=== PATIENT | male | born 1960 | race Caucasian/White ===

== ENCOUNTER 2024-06-12 17:37 | Emergency (ER) | payer OTHER ==
[~2024-06-12] VITALS: Ht 180.3 cm; Wt 106.8 kg
[2024-06-12 17:44] VITALS: TEMP 98
[2024-06-13 00:50] VITALS: BP 130/99; PULSE 92; RESP 18; O2SAT 99
[2024-06-13] MEDS ORDERED: HYDR-4808 PO (01:29)
[2024-06-13] MEDS ORDERED: PRED-554 PO (01:29)
[2024-06-13] MEDS: HydrOXYzine PAMOATE 50 MG CAPSULE PO ONE (01:36)
== END 2024-06-13 01:51 | disposition home or self-care (01) ==
LOC: EMS 17:37
DX: L29.9 Pruritus, unspecified (principal); E11.9 Type 2 diabetes mellitus without complications
CPT/HCPCS: 99283